=== PATIENT | male | born 1995 | race Caucasian/White ===

== ENCOUNTER 2023-07-09 16:13 | Outpatient (CLI) | payer MEDICARE, MEDICAID, SELFPAY ==
--- NOTE | 2023-07-09 16:25 | RAD_ITS ---
INDICATION: SOB EXAMINATION/TECHNIQUE: X-RAY - XR Chest 2 Views COMPARISON: None. FINDINGS: The lungs are clear. The cardiomediastinal silhouette is unremarkable. No pleural effusion or pneumothorax. No acute osseous abnormalities. RAD/Chest PA and Lateral IMPRESSION: No acute radiographic abnormalities. Electronically Signed: Anjum Delgadillo MD at 22:11 EDT ,
== END 2023-07-09 23:59 | disposition home or self-care (01) ==
PROVIDERS: PCP Internal Medicine; Referring Provider Nurse Practitioner Family; Visit Provider Nurse Practitioner Family
DX: R06.02 Shortness of breath (principal)
CPT/HCPCS: 71046

== ENCOUNTER → 2023-08-31 | Outpatient (CLI) | payer MEDICARE, MEDICAID, SELFPAY ==
--- NOTE | 2023-08-31 11:12 | MRI_ITS ---
INDICATION: chronic pain, failed conservative therapy EXAMINATION: MRI - MR Spine Lumbar W/O Contrast TECHNIQUE: Multiplanar and multisequence MR images of the lumbar spine without contrast. IV Contrast Dosage and Agent: None. COMPARISON: Lumbar radiograph 08/13/23. FINDINGS: VERTEBRAE: Normal bone marrow signal. No fracture or compression deformity. 5mm T1 and T2 hyperintense intraosseous hemangiomas at S1 and S3.. Normal vertebral bodies and posterior elements. VERTEBRAL ALIGNMENT: No spondylolisthesis. There is preservation of the normal lumbar lordosis. CORD: Conus medullaris at T12-L1. Limited imaged portion of the cord is unremarkable. Cauda equina layer dependently. L1/L2: Normal disc height and morphology. Normal spinal canal, lateral recesses and neuroforamina. L2/L3: Normal disc height and morphology. Normal spinal canal, lateral recesses and neuroforamina. L3/L4: Normal disc height and morphology. Normal spinal canal, lateral recesses and neuroforamina. L4/L5: Normal disc height and morphology. Normal spinal canal, lateral recesses and neuroforamina. L5/S1: Normal disc height and morphology. Normal spinal canal, lateral recesses and neuroforamina. SOFT TISSUES: Unremarkable. MRI/Spine Lumbar (Routine) IMPRESSION: Unremarkable MRI of the lumbar spine. Electronically Signed: Chang Bernardo MD at 6:11 EDT ,
== END | disposition home or self-care (01) ==
LOC: MRI 14:12
PROVIDERS: PCP Internal Medicine; Referring Provider Internal Medicine; Visit Provider Internal Medicine
DX: M54.50 Low back pain, unspecified (principal); G89.29 Other chronic pain
CPT/HCPCS: 72148

== ENCOUNTER 2023-12-28 18:30 | Outpatient (RCR) | payer MEDICARE, MEDICAID, SELFPAY ==
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
--- NOTE | 2023-08-20 11:28 | HP.PTREVAL ---
Re-Evaluation Intro: Dr. Oliva Palmer MD, It has been my pleasure to treat ISAAC PEREZ over the last 16 visits for LOW BACK PAIN ,CHRONIC PAIN ,PAIN IN RIGHT HIP ,PAIN IN LEFT HIP. Please see the progress note below for an update on the physical therapy plan of care! Subjective Subjective: Seen Dr had x-rays -hip and lumbar - plan for MRI Patient want to try water therapy Pain is worse Objective Objective/Function: Objective: POSTURE: flat spine PALPATION: tender LS/thoracic paraspinals ,spinalis NEURO: denies paresthesia/tingling ,reflexes intact L3-4,L4-5,L5-S1 2/3 SYMMETRIES: align LUMBAR ROM: flexion mod loss ,extension mod ,side glides mod pain all planes FLEXABILITY: severe tight MMT: quads /hams 4-/5 ,hip flexion 3+/5 ,3+/5 ,ankle 4-/5 Plan Plan Plan: PT INTERVENTIONS AQUATIC THERAPY GRADED LUMBAR ROM ,LE FLEXABILITY ,DLS ,POSTURAL EX'S ,FUNCTIONAL STRENGTHENING Balance/Gait/Functional tests Balance/Special Test Scores Lower Extremity Functional Score: 26 Goals Goals Goal 1:: Patient to ne I with HEP for back and Aquatic therapy Goal Time Frame: 2-4 Weeks Goal Progress: Progressing Goal 2:: Patient demonstrate 70% improvement with less pain and improved function( NEW GOAL) Goal Time Frame: 4-6 Weeks Goal 3:: Patient to improve lumbar ROM for function of recovery for ADLS Goal Time Frame: 4-6 Weeks Goal 4:: Patient to improve back oswestry score by 5 points to improve QOL and function. Goal Time Frame: 4-6 Weeks Goal Progress: Progressing Goal 5:: Patient to be able to perform general activities and ADLS with less pain Anticipated Interventions Anticipated Interventions Patient/Client Instruction: Educate patient on: Condition and Plan of Care For the Purpose of:: To decrease pain, To increase ROM, To improve muscle performance and motor function, To improve ability to perform ADL's, To increase tolerance to activity/condition/position, To improve performance and independence with ADL's, To improve ability of physical actions for home/community/work/leisure, To improve gait and locomotor functions, To improve health of tissue, To decrease soft tissue restriction, To improve endurance, To reduce risk of recurrence, To improve health and function and To foster healthy habits Therapeutic Exercise to Include: Strength training, Endurance training, Body mechanics, Postural training, Flexibilty training, In an aquatic setting, Active ROM and Dynamic Lumbar Stabilization Comment: BLE For the Purpose of:: To decrease pain, To increase ROM, To improve muscle performance and motor function, To improve ability to perform ADL's, To increase tolerance to activity/condition/position, To improve ability of physical actions for home/community/work/leisure, To improve gait and locomotor functions, To improve health of tissue, To decrease soft tissue restriction, To increase flexibility/ROM, To improve endurance, To improve balance and To improve tolerance to ADL's TENS: Yes IF ES: Yes Cryotherapy (ice pack, ice massage): Yes Thermo therapy (hot pack): Yes Ultrasound (thermal/non thermal): Yes For the Purpose of:: To decrease pain, To increase ROM, To improve nutrient delivery to tissue, To increase oxygenation perfusion, To improve gait and locomotor functions, To improve health of tissue and To decrease soft tissue restriction Re-Evaluation Ending Re-evaluation ending: Please do not hesitate to contact me at [phone] by phone or if you have questions or concerns regarding this new plan of care! Sincerely, Lio Botello, PT, Cert MDT, OCS
--- NOTE | 2023-10-19 18:09 | HP.PTREVAL_ITS ---
Re-Evaluation Intro: Dr. Oliva Palmer MD, It has been my pleasure to treat ISAAC PEREZ over the last 33 visits for LOW BACK PAIN ,CHRONIC PAIN ,PAIN IN RIGHT HIP ,PAIN IN LEFT HIP. Please see the progress note below for an update on the physical therapy plan of care! Subjective Subjective: Therapy has helped Patient walked walked ~ 1 1/2 Last session patient felt good from last session Objective Objective/Function: * Patient has mad nice progress with improving ROM and % of improvement but pain is limiting factor and weakness in legs thus benefit from skilled PT* Objective: POSTURE: flat spine PALPATION: tender LS/thoracic paraspinals ,spinalis NEURO: denies paresthesia/tingling ,reflexes intact L3-4,L4-5,L5-S1 2/3 SYMMETRIES: align LUMBAR ROM: flexion WFL ,extension MIN ,side glides min less pain FLEXABILITY: min/mod tight MMT:( peak force) quads left 17.3,right 17.2,hamstrings right 14.9 ,15.1 ,hip flexion right 29.9 ,left 27.1 ,ankle 4-/5 Plan Plan Plan: CONT WITH POC 1x land and 1X Aquatic PT PT INTERVENTIONS AQUATIC THERAPY GRADED LUMBAR ROM ,LE FLEXABILITY ,DLS ,POSTURAL EX'S ,FUNCTIONAL STRENGTHENING Balance/Gait/Functional tests Balance/Special Test Scores Lower Extremity Functional Score: 26 Goals Goals Goal 1:: Patient to ne I with HEP for back and Aquatic therapy Goal Time Frame: 2-4 Weeks Goal Progress: Progressing Goal 2:: Patient demonstrate 70% improvement with less pain and improved function( NEW GOAL) Goal Time Frame: 4-6 Weeks Goal Progress: Progressing Goal 3:: Patient to improve lumbar ROM for function of recovery for lifting( new goal) Goal Time Frame: 4-6 Weeks Goal Progress: Progressing Goal 4:: Patient to improve back oswestry score by 5 points to improve QOL and function. Goal Time Frame: 4-6 Weeks Goal Progress: Progressing Goal 5:: Patient to be able to perform general activities and ADLS with less pain Goal Time Frame: 4-6 Weeks Goal Progress: Progressing Goal 6:: Patient to increase peak force 5-10# quads/hams/hip to improve gait and function( new goal) Goal Time Frame: 4-6 Weeks Anticipated Interventions Anticipated Interventions Patient/Client Instruction: Educate patient on: Condition and Plan of Care For the Purpose of:: To decrease pain, To increase ROM, To improve muscle performance and motor function, To improve ability to perform ADL's, To increase tolerance to activity/condition/position, To improve performance and independence with ADL's, To improve ability of physical actions for home/commun ity/work/leisure, To improve gait and locomotor functions, To improve health of tissue, To decrease soft tissue restriction, To improve endurance, To reduce risk of recurrence, To improve health and function and To foster healthy habits Therapeutic Exercise to Include: Strength training, Endurance training, Body mechanics, Postural training, Flexibilty training, In an aquatic setting, Active ROM and Dynamic Lumbar Stabilization Comment: BLE For the Purpose of:: To decrease pain, To increase ROM, To improve muscle performance and motor function, To improve ability to perform ADL's, To increase tolerance to activity/condition/position, To improve ability of physical actions for home/community/work/leisure, To improve gait and locomotor functions, To improve health of tissue, To decrease soft tissue restriction, To increase flexibility/ROM, To improve endurance, To improve balance and To improve tolerance to ADL's TENS: Yes IF ES: Yes Cryotherapy (ice pack, ice massage): Yes Thermo therapy (hot pack): Yes Ultrasound (thermal/non thermal): Yes For the Purpose of:: To decrease pain, To increase ROM, To improve nutrient delivery to tissue, To increase oxygenation perfusion, To improve gait and locomotor functions, To improve health of tissue and To decrease soft tissue restriction Re-Evaluation Ending Re-evaluation ending: Please do not hesitate to contact me at [phone] by phone or if you have questions or concerns regarding this new plan of care! Sincerely, Lio Botello, PT, Cert MDT, OCS
== END 2023-12-28 19:00 | disposition home or self-care (01) ==
LOC: PT 18:30
PROVIDERS: PCP Internal Medicine; Referring Provider Internal Medicine; Visit Provider Internal Medicine
DX: M25.551 Pain in right hip (principal); M25.552 Pain in left hip; M25.50 Pain in unspecified joint; G89.29 Other chronic pain
CPT/HCPCS: 97110; 97113; 97162; 97530

== ENCOUNTER 2024-01-16 15:49 | Emergency (ER) | payer MEDICARE, MEDICAID, SELFPAY ==
[2024-01-16 15:49] VITALS: BP 143/94; PULSE 87; RESP 16; TEMP 36.2; O2SAT 99; BMI 21.2
--- NOTE | 2024-01-16 16:11 | EDS_ITS ---
HPI History of Present Illness Chief Complaint: Chest Other Detail of Chief Complaint: Right chest wall pain for a week after coughing. Informant: patient Onset/Context/Timing Onset: Days Activity at onset: gradual Timing: Intermittent Quality: Positive for Aching and Sharp Location: Right Chest Current Severity: Mild Maximum Severity: Moderate Worsened By: Movement of Torso, Breathing and Coughing Relieved By: Remaining Still Associated Symptoms: Negative for Nausea, Vomiting, Diaphoresis, Dyspnea, Cough, Fever, Lightheadedness, Acid Reflux or Palpitations Narrative Narrative: 28-year-old male history of anxiety depression and asthma. And recent URI. He was coughing a lot. Sees pain in his right chest wall for the last week. Worse with deep breathing, coughing or moving. Denies any fall or other trauma. No hemoptysis, no leg pain or swelling no shortness of breath. Prior Similar Symptoms: No Recent Illness/Hospitalization: No CVD Risk Factors: Negative for Hypertension, Diabetes or Hypercholesterolemia PE Risk Factors: Negative for Recent Travel/Surgery, Recent Immobilization, Prior DVT or PE, Cancer or OCP + Smoking + >/=35 PFSH PFSH Medical History Diverticulitis Chronic headaches Gastrointestinal problem Drug abuse Back problem Asthma Allergies Alcohol abuse Home Medications ?Medication ?Instructions ?Recorded ?Last Taken ?Type albuterol sulfate 90 mcg/actuation 2 inh inhalation Q4H PRN 06/15/23 Unknown History breath activated powder inhaler omeprazole 20 mg capsule,delayed 20 mg PO DAILY 06/15/23 Unknown History release fluticasone furoate 200 1 ea inhalation QDAY 08/13/23 Unknown History mcg-vilanterol 25 mcg/dose inhalation powder (Breo Ellipta) montelukast 10 mg tablet 10 mg PO DAILY #90 tabs 12/11/23 Unknown Rx venlafaxine 37.5 mg 37.5 mg PO QDAY #30 caps 01/12/24 Unknown Rx capsule,extended release 24 hr Allergy/AdvReac Type Severity Reaction Status Date / Time azithromycin (From Zithromax) Allergy Intermediate Rash Verified 01/16/24 15:52 Family History Brother Asthma Grandfather Colon cancer Uncle Colon cancer Mother Diabetes Father Hypertension Brother Autism Unknown Suicide Grandfather Diabetes Surgical History S/P colonoscopy (02/06/22) No pertinent past surgical history Social History adopted: No household members: spouse current occupational status: unemployed current occupation: volunteers in the [employer] history of recent travel: No Smoking Status: Former smoker quit date: 04/14/19 pack-years: 2 alcohol intake: former year quit: 2019 substance use type: former substance user Date of last use: 2019, marijuana, amphetamines and other what type of physical activity do you participate in: walking seatbelt use: always do you feel safe at home: Yes ROS ROS ED ROS Narrative Recent URI. Chest wall pain on the right. Constitutional Constitutional ED: Denies chills Eyes Eyes: Reports none ENT ENT ED: Denies ear pain or rhinorrhea Cardiovascular Cardiovascular: Reports chest pain and other Details: Right rib cage tenderness. Respiratory/Chest Respiratory/Chest: Reports cough; Denies dyspnea Gastrointestinal Gastrointestinal: Denies abdominal pain Genitourinary Genitourinary ED: Denies dysuria Musculoskeletal Musculoskeletal: Denies arthralgias Integumentary Denies abscess Neurologic Neurologic: Denies headache(s) Psychiatric Psychiatric: Denies anxiety or depression Endocrine Endocrinology: Denies cold intolerance Hematologic/Lymphatic Hematologic/Lymphatic: Denies easy bleeding Allergic/Immunologic Allergic/Immunologic ED: Denies mouth swelling, tongue swelling or urticaria EXAM Physical Exam Narrative Exam Narrative: Well-appearing 28-year-old male. Vital signs stable afebrile. Pulse ox 9 9% room air no signs hypoxia. No distress. H EENT exam unremarkable. Mytrex memb ranes. Neck nontender no JVD. No lymphadenopathy. Back nontender. Lungs clear to auscultation bilaterally. Equal symmetrical. Heart regular rate and rhythm rate about 85 no murmur. Chest wall sternum and left chest completely nontender right anterior and lateral rib cage tenderness. No crepitance or subcu air. No bruising. No bony deformity. Obvious reproducible tenderness though. Consistent with a chest wall contusion, rib strain or fracture. Abdomen soft nontender. Moving all 4 extremities. Normal interior design assistant strength. Normal dorsi plantarflex. Calves are nontender without edema or cords. He is awake and alert. No focal motor deficits. Const Vital Signs: 01/16/24 15:49 01/16/24 15:56 Temperature 97.2 F L Temperature Source Temporal Pulse Rate 87 Respiratory Rate 16 Respiratory Effort Normal Blood Pressure 143/94 H Blood Pressure Mean 110 Pulse Ox 99 Oxygen Delivery Method Room Air Positive well nourished and well developed; Negative for obese, cachectic, contractures or unkempt General Appearance ED: well developed and NAD; Negative for unkempt, cachectic, contractures or pallor Nutritional Appearance: Negative for cachectic or obese HEENT Reports moist mucous membranes normocephalic and atraumatic; Negative for trauma or tenderness Eyes PERRL and EOMs intact bilaterally Neck no lymphadenopathy, supple and no JVD Chest Wall inspection of chest normal; Negative for palpation of chest normal Chest Narrative: Right anterior lateral ribs tender. No crepitance or subcu air. No bruising. Chest: tenderness Resp normal respiratory effort and clear to auscultation bilaterally Effort and Inspection: Negative for respiratory distress Auscultation: Negative for rales, rhonchi, wheezes or diminished lung sounds Cardio regular rate, regular rhythm, S1 normal heart sound, S2 normal heart sound and no murmurs Rate: Negative for bradycardia or tachycardic Peripheral Pulses: pulses 2+ throughout GI normal to inspection, nondistended, normoactive bowel sounds, soft to palpation, non-tender, non-distended and no masses Back/Spine no CVA tenderness and no thoracic nor lumbar tenderness General Back: Negative for CVA tenderness Cervical Spine: Negative for cervical spine tenderness Extremity normal to inspection General Extremety ED: Negative for edema, pulses abnormal or tenderness General Extremity: Negative for edema or pulses abnormal Neuro oriented x3 and CN's II-XII intact bilaterally Sensorium / Orientation: awake, alert, oriented to person, oriented to place and oriented to time; Negative for confused, lethargic or stuporous Motor Exam: strength 5/5 throughout Psych mental status grossly normal Appearance: Negative for unkempt Attitude: No agitated Mood & Affect: Negative for depressed, anxious or tearful Skin no rashes or lesions noted and no wounds General Skin Exam: Negative for jaundice or pallor Rashes: No rashes noted Trauma: Negative for abrasion, laceration or puncture MDM MDM MDM Narrative Medical decision making narrative: 28-year-old male recent URI with COVID he has right chest wall pain is reproducible suspect intercostal muscle strain versus rule out rib fracture or pneumothorax presenting is less likely. Chest x-ray being obtained. Repeat exam at 4:44 PM unchanged. We went over his x-ray results. Chest x-ray was unremarkable. History & Record Review Discussion w/independent historian: Patient Radiography Chest X-Ray - ED: 2 View, Read by ED Physician, Read by Radiologist, Normal, Heart, Lungs, Mediastinum, Bony Structures and No Acute Disease Diagnostic Testing: Clinical Impression(s) from Imaging Studies Chest X-Ray 01/16/24 16:14 IMPRESSION: No acute cardiopulmonary abnormality. Significant dehydration suspected. Electronically Signed: Jose Ragland MD at 16:37 EST , Chest x-ray, 2 views, AP and lateral, interpreted by myself and radiologist shows no acute abnormality. Normal cardiac silhouette. Normal lungs. No pneumothorax. No obvious rib fractures. No infiltrate. Discharge Plan Triage Chief Complaint: Chest Other ED Provider: Huey Ocampo Dx/Rx/DC Orders Clinical Impression: Chest wall muscle strain Instructions: ED Chest Wall Strain Prescriptions: No Action omeprazole 20 mg capsule,delayed release(DR/EC) 20 mg PO DAILY albuterol sulfate 90 mcg/actuation aerosol powdr breath activated 2 inh inhalation Q4H PRN fluticasone furoate-vilanterol [Breo Ellipta] 200-25 mcg/dose blister with device 1 ea inhalation QDAY venlafaxine 37.5 mg capsule,extended release 24hr 37.5 mg PO QDAY Qty: 30 1RF montelukast 10 mg tablet 10 mg PO DAILY Qty: 90 0RF Primary Care Provider: Oliva Palmer Referrals: Oliva Palmer MD [Primary Care Provider] - 10-14 Days if not better Activity Restrictions/Additional Instructions: Chest x-ray look good. No obvious rib fractures. Suspect she strained the muscles between your ribs. Ice to the area 30 minutes at a time 4-5 times a day. Alternate Motrin for pain and inflammation and Tylenol for pain. Use a pillow to brace your ribs. Follow-up with your doctor if not improving. Print Language: Macanese Disposition Disposition: Home, Self Care
--- NOTE | 2024-01-16 16:14 | RAD_ITS ---
EXAM: XR CHEST, 2 VIEWS CLINICAL INDICATION: cough TECHNIQUE: Frontal and lateral views of the chest. COMPARISON: XR Chest dated 07/09/2023 FINDINGS: LUNGS AND PLEURAL SPACES: Pulmonary vessels are quite attenuated suggesting dehydration. Lungs are clear. No pleural effusion or pneumothorax. HEART: Normal heart size. MEDIASTINUM: No mediastinal or hilar mass. BONES/JOINTS: No acute abnormality. RAD/Chest PA and Lateral IMPRESSION: No acute cardiopulmonary abnormality. Significant dehydration suspected. Electronically Signed: Jose Ragland MD at 16:37 EST ,
== END 2024-01-16 16:50 | disposition home or self-care (01) ==
PROVIDERS: Emergency Provider Emergency Medicine; PCP Internal Medicine; Visit Provider Emergency Medicine
DX: S29.011A Strain of muscle and tendon of front wall of thorax, initial encounter (principal); Z87.891 Personal history of nicotine dependence; J45.909 Unspecified asthma, uncomplicated; X58.XXXA Exposure to other specified factors, initial encounter
CPT/HCPCS: 71046; 99282

== ENCOUNTER 2024-01-18 17:00 | Outpatient (RCR) | payer MEDICARE, MEDICAID, SELFPAY ==
--- NOTE | 2024-01-18 17:55 | HP.PTDCSUM_ITS ---
Discharge Summary D/C summary: It has been my pleasure to treat ISAAC PEREZ referred by Dr. Oliva Palmer MD, with the diagnosis of Low back pain. for a total of 48 visit(s). Discharge Date: 01/18/24 Please see the following information for a summary of their discharge status. Subjective Subjective: Doing well ready for HEP and gym Overall Improvement % Improvement: 85 Objective Objective/Function: Objective: POSTURE: flat spine PALPATION: tender LS/thoracic paraspinals ,spinalis NEURO: denies paresthesia/tingling ,reflexes intact L3-4,L4-5,L5-S1 2/3 SYMMETRIES: align LUMBAR ROM: flexion WFL ,extension MIN ,side glides min less pain FLEXABILITY: min/mod tight MMT:( peak force) quads left 17.3,right 17.2,hamstrings right 14.9 ,15.1 ,hip flexion right 29.9 ,left 27.1 ,ankle 4-/5 Goals Goal 1:: Patient to be I with [facility] for back and Aquatic therapy and gym program. Goal Progress: Goal Met Goal 2:: Patient demonstrate 70% improvement with less pain and improved function( NEW GOAL) Goal Progress: Goal Met Goal 3:: Patient to improve lumbar ROM for function of recovery for lifting( new goal) Goal Progress: Goal Met Goal 4:: Patient to improve lumbar ROM for function of recovery for lifting( new goal) Goal Progress: Goal Met Goal 5:: Patient to increase peak force 5-10# quads/hams/hip to improve gait and function( new goal) Goal Progress: Goal Met Plan Plan: D/C D/C Information d/c sentence: If there are questions or concerns regarding this patient's physical therapy, please feel free to call me at [phone]. Thank you for the referral of this patient. Sincerely, Lio Botello, PT, Cert MDT, OCS Balance/Gait/Functional tests Balance/Special Test Scores Oswestry Low Back Score: 5 Improvement % Improvement: 85
--- NOTE | 2024-01-18 17:55 | HP.PTDCSUM_ITS ---
Discharge Summary D/C summary: It has been my pleasure to treat ISAAC PEREZ referred by Dr. Oliva Palmer MD, with the diagnosis of Low back pain. for a total of 48 visit(s). Discharge Date: 01/18/24 Please see the following information for a summary of their discharge status. Subjective Subjective: Doing well ready for HEP and gym Overall Improvement % Improvement: 85 Objective Objective/Function: Objective: POSTURE: flat spine PALPATION: tender LS/thoracic paraspinals ,spinalis NEURO: denies paresthesia/tingling ,reflexes intact L3-4,L4-5,L5-S1 2/3 SYMMETRIES: align LUMBAR ROM: flexion WFL ,extension MIN ,side glides min less pain FLEXABILITY: min/mod tight MMT:( peak force) quads left 17.3,right 17.2,hamstrings right 14.9 ,15.1 ,hip flexion right 29.9 ,left 27.1 ,ankle 4-/5 Goals Goal 1:: Patient to be I with [facility] for back and Aquatic therapy and gym program. Goal Progress: Goal Met Goal 2:: Patient demonstrate 70% improvement with less pain and improved function( NEW GOAL) Goal Progress: Goal Met Goal 3:: Patient to improve lumbar ROM for function of recovery for lifting( new goal) Goal Progress: Goal Met Goal 4:: Patient to improve lumbar ROM for function of recovery for lifting( new goal) Goal Progress: Goal Met Goal 5:: Patient to increase peak force 5-10# quads/hams/hip to improve gait and function( new goal) Goal Progress: Goal Met Plan Plan: D/C D/C Information d/c sentence: If there are questions or concerns regarding this patient's physical therapy, please feel free to call me at [phone]. Thank you for the referral of this patient. Sincerely, Lio Botello, PT, Cert MDT, OCS Balance/Gait/Functional tests Balance/Special Test Scores Oswestry Low Back Score: 5 Improvement % Improvement: 85
== END 2024-01-18 19:00 | disposition home or self-care (01) ==
LOC: PT 17:00
PROVIDERS: PCP Internal Medicine; Referring Provider Internal Medicine; Visit Provider Internal Medicine
DX: M54.50 Low back pain, unspecified (principal); M25.551 Pain in right hip; M25.552 Pain in left hip; G89.29 Other chronic pain
CPT/HCPCS: 97110; 97530

== ENCOUNTER → 2024-03-21 | Outpatient (CLI) | payer MEDICARE, MEDICAID, SELFPAY ==
--- NOTE | 2024-03-21 15:53 | CT_ITS ---
INDICATION: shortness of breath, asthma, smoker EXAMINATION: CT CHEST WITHOUT CONTRAST - CT Chest W/O Contrast Injection TECHNIQUE: Helically acquired images were obtained of the chest. The protocol utilizes one or more of the following dose reduction techniques: automated exposure control, adjustment of mA and/or kV according to patient size,and/or use of iterative reconstruction technique. IV Contrast dosage and agent: None. RADIATION DOSAGE (If Supplied By Facility): CTDIvol = ( 7.31 ) mGy, DLP = ( 288.78 ) mGycm COMPARISON: FINDINGS: LUNGS, PLEURA AND LARGE AIRWAYS: No masses, consolidation, or edema. No pleural effusion or thickening. No pneumothorax. THYROID: No thyroid lesions. HEART AND PERICARDIUM: Heart size is normal. No pericardial effusion. CORONARY ARTERIES: Coronary artery calcification VESSELS: Thoracic aorta is not dilated. MEDIASTINUM AND ARTUR: No mediastinal or hilar adenopathy. Esophagus is unremarkable. No hiatal hernia. UPPER ABDOMEN: No acute pathology. BONES: No suspicious lytic or blastic abnormality. Old right rib fractures. CT/Chest without Contrast IMPRESSION: Negative CT chest without contrast. Electronically Signed: Eduard Galarza DO at 16:33 EST Reading Location ID and State: [facility] / [place] Tel [phone], Service support ,
== END | disposition home or self-care (01) ==
LOC: CT 15:51
PROVIDERS: PCP Internal Medicine; Referring Provider Nurse Practitioner Family; Visit Provider Nurse Practitioner Family
DX: R06.02 Shortness of breath (principal)
CPT/HCPCS: 71250

== ENCOUNTER → 2024-04-06 | Outpatient (CLI) | payer MEDICARE, MEDICAID, SELFPAY ==
--- NOTE | 2024-04-06 10:15 | RAD_ITS ---
PROCEDURE: FOOT MIN 3 VIEWS REASON FOR EXAM: Pain. TECHNIQUE: Three-view left foot COMPARISON: None. RAD/Foot min 3 Views IMPRESSION: On the lateral view, normal contour of the Achilles tendon is seen. Satisfactory osseous alignment is seen throughout. No significant arthritic pr ocess or joint narrowing is noted. No hallux valgus is evident. No fracture or dislocation is seen. If clinical concern persists, short-term follow-up imaging may be obtained to r ule out a currently occult fracture. Reading Location: [id number]
== END | disposition home or self-care (01) ==
PROVIDERS: PCP Internal Medicine; Referring Provider Physician Assistant; Visit Provider Physician Assistant
DX: M79.672 Pain in left foot (principal)
CPT/HCPCS: 73630

== ENCOUNTER → 2024-12-26 | Outpatient (CLI) | payer MEDICARE, MEDICAID, SELFPAY ==
--- NOTE | 2024-12-26 16:09 | RAD_ITS ---
RAD/Knee 4 or More Views
== END | disposition home or self-care (01) ==
PROVIDERS: PCP Internal Medicine; Referring Provider Nurse Practitioner Family; Visit Provider Nurse Practitioner Family
DX: M25.562 Pain in left knee (principal)
CPT/HCPCS: 73564